=== PATIENT | female | born 1960 | race Caucasian/White ===

== ENCOUNTER → 2017-12-03 | Outpatient (CLI) | payer OTHER | LOC: BMCIMAGING 16:14 | PROVIDERS: ATTEND Family Medicine | DX: J18.9 Pneumonia, unspecified organism (principal); J90 Pleural effusion, not elsewhere classified ==

== ENCOUNTER 2017-12-04 11:18 | Inpatient (IN) | payer OTHER ==
--- NOTE | 2017-12-04 11:43 | EDPHY ---
H & P Stated Complaint: DX PNA YESTERDAY AT [facility] WITH CXR/FLU NEG NOT BETTER WITH ABX Time Seen by Provider: 12/04/17 11:26 HPI/ROS: CHIEF COMPLAINT: Fever, chills, positive blood cultures HISTORY OF PRESENT ILLNESS: The patient presents the ED with several days of fever, chills and severe back pain. The patient was seen at urgent care yesterday and diagnosed with a lingular pneumonia. She received Rocephin and was discharged home on oral antibiotics including azithromycin and a cephalosporin. The patient apparently had blood cultures obtained which have demonstrated MSSA in both bottles prompting the patient's referral to the ED today. The patient denies any history of recent dental work, procedure or prior infection. She denies significant cough. Her chief complaint is one of severe pain across her back. The patient was recently in [place] visiting her father who was hospitalized with a viral pneumonia. REVIEW OF SYSTEMS: A comprehensive 10 point review of systems is otherwise negative aside from elements mentioned in the history of present illness. Source: Patient Exam Limitations: No limitations - Personal History Current Tetanus Diphtheria and Acellular Pertussis (TDAP): Unsure - Medical/Surgical History Hx Asthma: No Hx Chronic Respiratory Disease: No Hx Diabetes: No Hx Cardiac Disease: No Hx Renal Disease: No Hx Cirrhosis: No Hx Alcoholism: No Hx HIV/AIDS: No Hx Splenectomy or Spleen Trauma: No Other PMH: DENIES - Social History Smoking Status: Never smoked - Physical Exam Exam: General Appearance: Alert, appears uncomfortable Eyes: Pupils equal and round no pallor or injection ENT, Mouth: Mucous membranes moist Respiratory: There are no retractions, lungs are clear to auscultation Cardiovascular: Tachycardic, 2/6 systolic ejection murmur Gastrointestinal: Abdomen is soft and nontender, no masses, bowel sounds normal Neurological: A&O, normal motor function, normal sensory exam, normal cranial nerves Skin: Warm and dry, no rashes Musculoskeletal: Neck is supple nontender Extremities: symmetrical, full range of motion Psychiatric: Patient is oriented X 3, there is no agitation Constitutional: Initial Vital Signs Temperature (C) 36.7 C 12/04/17 11:22 Heart Rate 102 H 12/04/17 11:22 Respiratory Rate 19 12/04/17 11:22 Blood Pressure 130/83 H 12/04/17 11:22 O2 Sat (%) 95 12/04/17 11:22 O2 Delivery Mode Room Air Allergies/Adverse Reactions: Penicillins Allergy (Verified 12/04/17 13:05) Unknown Sulfa (Sulfonamide Antibiotics) Allergy (Verified 12/04/17 13:05) Hives Home Medications: Medication Instructions Recorded Azithromycin 250 mg PO DAILY 12/04/17 Cefdinir [Omnicef (*)] 300 mg PO BID 12/04/17 Cyclobenzaprine [Flexeril 10 MG 10 mg PO Q8H PRN 12/04/17 (*)] Multivitamins [Multivitamin (*)] 1 each PO DAILY 12/04/17 Medical Decision Making - Diagnostics Imaging Results: Imaging Impressions Chest X-Ray 12/04/17 11:31 Impression: Likely scarring in the right costophrenic angle. No pneumonia identified. Chest CT 12/04/17 12:01 Impression: 1. Abnormal paraspinal soft tissue widening between T5 and T9 associated with esophageal fluid. If there is concern for an esophageal perforation, then consider performing a Gastrografin esophagram.. If there is concern for a paraspinal tumor such as a lymphoma or abscess, then recommend thoracic MRI without and with contrast. 2. The thoracic aorta is normal. Results called to Dr. Buck Garduno at 1:45 PM. General information for patients regarding this examination can be found at [email or web address]. If you have questions or comments about this report, please contact me at (hospital) or [phone] (cell). ED Course/Re-evaluation: I reviewed the patient's laboratory testing. She presents to the ED with bacteremia, back pain and dyspnea. The patient denies significant cough. Her chest x-ray yesterday demonstrates a questionable lingular infiltrate although the patient has no respiratory symptoms of productive cough. The patient had additional blood cultures obtained in the emergency department. She was given additional 2 g of Ancef in the setting of her known bacteremia. Further workup of her bacteremia was undertaken including a CT scan of the chest with contrast. I have also ordered an echocardiogram and MRI of her thoracic spine to evaluate for diskitis or osteomyelitis. CT scan of the chest demonstrates no evidence of pneumonia. She has no evidence of a pulmonary embolism or dissection. The patient does have abnormal signature noted in her para thoracic musculature. Given concerns about a possible epidural abscess a MRI of the thoracic spine with and without contrast has been ordered. Patient has no risk factors for esophageal injury and is not experiencing odynophagia. I did consult with Dr. Barragan from Infectious Disease who will also see the patient. The patient will be admitted to Dr. Barraza from the hospitalist service. The patient does not have SIRS criteria in the emergency department. 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 I consulted with Dr. Clemente from Neurosurgery at 3:00 p.m.. He will see the patient in consultation. Differential Diagnosis: Differential diagnosis considered includes sepsis, pneumonia, epidural abscess, endocarditis, mediastinitis Critical Care Time: Critical care time exclusive of procedures and exclusive of the PA's time was 65 minutes, performed by myself, Harmeet Garduno MD. The patient presents the ED with fever, bacteremia and acute back pain. The patient does have a intrathoracic abscess noted on her workup today. She received appropriate antibiotics. Consultation was made with infectious disease, Neurosurgery and Hospital Medicine. - Data Points Laboratory Results: Laboratory Results 12/04/17 12:05 12/04/17 12:05 12/04/17 12/04/17 12/04/17 12:05 12:05 12:05 WBC 9.49 10^3/uL 10^3/uL (3.80-9.50) RBC 4.86 10^6/uL 10^6/uL (4.18-5.33) Hgb 15.5 g/dL g/dL (12.6-16.3) Hct 44.4 % % (38.0-47.0) MCV 91.4 fL fL (81.5-99.8) MCH 31.9 pg pg (27.9-34.1) MCHC 34.9 g/dL g/dL (32.4-36.7) RDW 12.1 % % (11.5-15.2) Plt Count 185 10^3/uL 10^3/uL (150-400) MPV 9.8 fL fL (8.7-11.7) Neut % (Auto) 81.5 % H % (39.3-74.2) Lymph % (Auto) 8.6 % L % (15.0-45.0) [place] % (Auto) 8.9 % % (4.5-13.0) Eos % (Auto) 0.2 % L % (0.6-7.6) Baso % (Auto) 0.5 % % (0.3-1.7) Nucleat RBC Rel Count 0.0 % % (0.0-0.2) Absolute Neuts (auto) 7.73 10^3/uL H 10^3/uL (1.70-6.50) Absolute Lymphs (auto) 0.82 10^3/uL L 10^3/uL (1.00-3.00) Absolute Monos (auto) 0.84 10^3/uL H 10^3/uL (0.30-0.80) Absolute Eos (auto) 0.02 10^3/uL L 10^3/uL (0.03-0.40) Absolute Basos (auto) 0.05 10^3/uL 10^3/uL (0.02-0.10) Absolute Nucleated RBC 0.00 10^3/uL 10^3/uL (0-0.01) Immature Gran % 0.3 % % (0.0-1.1) Immature Gran # 0.03 10^3/uL 10^3/uL (0.00-0.10) VBG Lactic Acid 1.8 mmol/L mmol/L (0.7-2.1) Sodium 138 mEq/L mEq/L (135-145) Potassium 3.3 mEq/L mEq/L (3.3-5.0) Chloride 101 mEq/L mEq/L (97-110) Carbon Dioxide 26 mEq/l mEq/l (22-31) Anion Gap 11 mEq/L mEq/L (6-14) BUN 4 mg/dL L mg/dL (7-23) Creatinine 0.6 mg/dL mg/dL (0.6-1.0) Estimated GFR > 60 Glucose 104 mg/dL H mg/dL (70-100) Calcium 9.2 mg/dL mg/dL (8.5-10.4) Medications Given: Discontinued Medications Acetaminophen (Tylenol) 1,000 mg PO ONCE ONE Stop: 12/04/17 13:44 Last Admin: 12/04/17 13:44 Dose: 1,000 mg Hydromorphone HCl (Dilaudid) 1 mg IVP EDNOW ONE Stop: 12/04/17 12:30 Last Admin: 12/04/17 12:30 Dose: 1 mg Cefazolin Sodium/Dextrose (Ancef) 100 mls @ 200 mls/hr IV EDNOW ONE PRN Reason: Protocol Stop: 12/04/17 13:04 Last Admin: 12/04/17 13:37 Dose: 100 mls Departure - Departure Disposition: [facility] Acute Clinical Impression: Bacteremia, Abscess of thorax Condition: Fair
[2017-12-04 12:17] LABS: PLATELET COUNT 185 10^3/uL (150-400)
[2017-12-04] MEDS ORDERED: HYDROmorphONE/DILAUDID 1 MG/ML INJ ONE (12:26)
[2017-12-04] MEDS ORDERED: HYDROmorphONE/DILAUDID 2 MG/ML INJ IVP ONE ×2 (12:29→15:10)
[2017-12-04] MEDS ORDERED: ceFAZolin 2 GM/DEXTROSE 100 ML IV ONE (12:35)
[2017-12-04] MEDS ORDERED: IOPAMIDOL (ISOVUE-300) 100 ML BTL ONE (13:08)
[2017-12-04] MEDS ORDERED: ACETAMINOPHEN 500 MG TAB ONE (13:41)
[2017-12-04] MEDS ORDERED: ACETAMINOPHEN 500 MG TAB PO ONE (13:43)
[2017-12-04] MEDS ORDERED: GADOBUTROL 10 ML VIAL IVP ONE (14:21)
[2017-12-04] MEDS ORDERED: NS 1,000 ML IV ONE (15:39)
[2017-12-04] MEDS ORDERED: HYDROCODONE/APAP 5/325 TAB PO PRN (15:39)
[2017-12-04] MEDS ORDERED: HYDROmorphONE/DILAUDID 1 MG/ML INJ IVP PRN (15:39)
--- NOTE | 2017-12-04 16:20 | PDGENHP ---
History and Physical - Chief Complaint Fevers, back pain - History of Present Illness Lindsey Samuels is a 57 yo F with a unremarkable PMHx of who presents to [facility] for 5 days of back pain and fevers. She reports that she was seen at urgent care center yesterday and diagnosed with PNA. She was given Rocephin and discharged on oral abx. Blood cultures were reportedly collected at that time and resulted in MSSA which prompted her visit to [facility] today. She had onset of back pain on Friday. Pain was located on L side of back under her R shoulder blade, pain is described as sharp, radiating across her back, intermittent, and worse with deep breaths. She has also experienced fevers at home. She denies chest pain, cough, abdominal pain, d/c, n/v, weakness, numbness/tingling, urinary/ bowel incontinence. She does report decreased appetite and decreased PO intake over past few days 2/2 pain. She was recently in [place] visiting her who is hospitalized with a viral PNA. History Information - Allergies/Home Medication List Allergies/Adverse Reactions: Penicillins Allergy (Verified 12/04/17 13:05) Unknown Sulfa (Sulfonamide Antibiotics) Allergy (Verified 12/04/17 13:05) Hives Home Medications: Azithromycin 250 mg PO DAILY 12/04/17 [Last Taken 12/04/17] Cefdinir [Omnicef (*)] 300 mg PO BID 12/04/17 [Last Taken 12/04/17] Cyclobenzaprine [Flexeril 10 MG (*)] 10 mg PO Q8H PRN 12/04/17 [Last Taken Unknown] Multivitamins [Multivitamin (*)] 1 each PO DAILY 12/04/17 [Last Taken Unknown] I have personally reviewed and updated: family history, medical history, social history, surgical history - Past Medical History no pertinent PMH - Surgical History Reports: no pertinent surgical hx - Family History Positive for: non-pertinent - Social History Smoking Status: Never smoked Review of Systems Review of Systems: ROS: 10pt was reviewed & negative except for what was stated in HPI & below Physical Exam Physical Exam: Temp Pulse Resp BP Pulse Ox 37.8 C 113 H 16 142/92 H 93 12/04/17 15:05 12/04/17 15:05 12/04/17 15:05 12/04/17 15:05 12/04/17 15:05 Constitutional: no apparent distress Eyes: PERRL Ears, Nose, Mouth, Throat: dry mucous membranes Cardiovascular: tachycardia Respiratory: no respiratory distress, clear to auscultation Gastrointestinal: soft, non-tender abdomen Genitourinary: no bladder tenderness, No jimenez in urethra Skin: warm Musculoskeletal: no muscle tenderness, pain with ROM Neurologic: AAOx3 Psychiatric: interacting appropriately Lab Data & Imaging Review 12/04/17 12:05 12/04/17 12:05 WBC 9.49 10^3/uL (3.80-9.50) 12/04/17 12:05 RBC 4.86 10^6/uL (4.18-5.33) 12/04/17 12:05 Hgb 15.5 g/dL (12.6-16.3) 12/04/17 12:05 Hct 44.4 % (38.0-47.0) 12/04/17 12:05 MCV 91.4 fL (81.5-99.8) 12/04/17 12:05 MCH 31.9 pg (27.9-34.1) 12/04/17 12:05 MCHC 34.9 g/dL (32.4-36.7) 12/04/17 12:05 RDW 12.1 % (11.5-15.2) 12/04/17 12:05 Plt Count 185 10^3/uL (150-400) 12/04/17 12:05 MPV 9.8 fL (8.7-11.7) 12/04/17 12:05 Neut % (Auto) 81.5 % (39.3-74.2) H 12/04/17 12:05 Lymph % (Auto) 8.6 % (15.0-45.0) L 12/04/17 12:05 [place] % (Auto) 8.9 % (4.5-13.0) 12/04/17 12:05 Eos % (Auto) 0.2 % (0.6-7.6) L 12/04/17 12:05 Baso % (Auto) 0.5 % (0.3-1.7) 12/04/17 12:05 Nucleat RBC Rel Count 0.0 % (0.0-0.2) 12/04/17 12:05 Absolute Neuts (auto) 7.73 10^3/uL (1.70-6.50) H 12/04/17 12:05 Absolute Lymphs (auto) 0.82 10^3/uL (1.00-3.00) L 12/04/17 12:05 Absolute Monos (auto) 0.84 10^3/uL (0.30-0.80) H 12/04/17 12:05 Absolute Eos (auto) 0.02 10^3/uL (0.03-0.40) L 12/04/17 12:05 Absolute Basos (auto) 0.05 10^3/uL (0.02-0.10) 12/04/17 12:05 Absolute Nucleated RBC 0.00 10^3/uL (0-0.01) 12/04/17 12:05 Immature Gran % 0.3 % (0.0-1.1) 12/04/17 12:05 Immature Gran # 0.03 10^3/uL (0.00-0.10) 12/04/17 12:05 VBG Lactic Acid 1.8 mmol/L (0.7-2.1) 12/04/17 12:05 Sodium 138 mEq/L (135-145) 12/04/17 12:05 Potassium 3.3 mEq/L (3.3-5.0) 12/04/17 12:05 Chloride 101 mEq/L (97-110) 12/04/17 12:05 Carbon Dioxide 26 mEq/l (22-31) 12/04/17 12:05 Anion Gap 11 mEq/L (6-14) 12/04/17 12:05 BUN 4 mg/dL (7-23) L 12/04/17 12:05 Creatinine 0.6 mg/dL (0.6-1.0) 12/04/17 12:05 Estimated GFR > 60 12/04/17 12:05 Glucose 104 mg/dL (70-100) H 12/04/17 12:05 Calcium 9.2 mg/dL (8.5-10.4) 12/04/17 12:05 Assessment & Plan Assessment: Paraspinal Abscess vs., Phlegmon - Presents with 5 days of back pain, fevers - MRI Thoracic Spine shows multiloculated fluid collection anterior to T5-6, largest collection 2.8 cm x 0.7 cm. Fluid does not tract posteriorly into neural foramina or spinal canal. No epidural abscess - Reportedly + blood cultures at OSH grew MSSA - S/p Ancef in ED, will continue for now - ID and Neurosurgery consulted in ED for further evaluation and management - NPO for now pending neurosurgical evaluation - Pain control PRN Bacteremia (Acute) - Reportedly + blood cultures at OSH grew MSSA - Repeat blood cultures drawn in ED, f/u results - Continue Ancef as above - TTE pending to evaluate for endocarditis Tachycardia - HR 100-110's on admission, appears sinus - Does not meet SIRS criteria given lac of leukocytosis, tachypnea - Likely 2/2 to pain and infection, prn pain meds as above, will give 1L NS Bolus then mIVF overnight FEN: 1L NS Bolus, 100 ml NS overnight, NPO pending neurosurg eval DVT PPx: SCDs, holding pending neurosurg eval Code: Full Dispo: Admit to Medicine, pending clinical course
--- NOTE | 2017-12-04 16:53 | ECHO ---
[email or web address] [address] [address] Main: [phone] Fax: Transthoracic Echocardiogram Name: NATALIIA CAMACHO MR#: [id number] Study Date: 12/04/2017 Study Time: 12:12 PM Date of : 1960 Age: 57 year(s) Height: 170.2 cm (67 in.) Weight: 58.97 kg (130 lb.) BSA: 1.68 m2 Gender: Female Examination: Echo Indication: bacteremic, Chest Pain Image Quality: Adequate Contrast: Requested by: Harmeet Garduno BP: / Heart Rate: Rhythm: Indication: bacteremic, Chest Pain Procedure Staff Singing Messenger: Sarah Aguayo [facility] Reading Physician: Salud Chandler MD Requesting Provider: Conclusions: Normal size left ventricle. No LV hypertrophy. Normal global systolic LV function. EF is 62 %. Normal size right ventricle. Normal RV function. Chiari's network discernible in right atrium. Trivial anterior pericardial effusion. No echocardiographic evidence of hemodynamic compromise. no significant valvular disease. No prior echo Measurements: Chambers Valvular Assessment AV/MV Valvular Assessment TV/PV Normal Normal Normal Name Value Range Name Value Range Name Value Range Ao Trini (2D): 2.9 cm (1.4 cm-2.6 AV Vmax: 1.16 m/s (1 m/s-1.7 PV Vmax: 0.77 m/s (0.6 m/s-0.9 cm) m/s) m/s) IVSd (2D): 0.8 cm (0.6 cm-1.1 AV maxP mmHg ( - ) PV PGmax: 2 mmHg ( - ) cm) AV meanP mmHg ( - ) LVDd (2D): 4.6 cm (3.9 cm-5.3 LVOT Vmax: 0.85 m/s (0.7 m/s-1.1 cm) m/s) LVDs (2D): 3.1 cm (2.1 cm-4 RENUKA (Vmax): 2.3 cm2 ( - ) cm) RENUKA (VTI): 2.0 cm ( - ) LVPWd (2D): 0.8 cm ( - ) MV E Vmax: 0.55 m/s ( - ) LVOTd 2.0 cm 2.0 cm mm MV A Vmax: 0.57 m/s ( - ) LVEF (BP): 62 % (>=55 %) MV E/A: 0.96 ( - ) RVDd(2D): 2.9 cm (1.9 cm-3.8 MV PHT: 0.059 s ( - ) cmmm) MVA (PHT): 3.7 s ( - ) Continued Measurements: Patient: NATALIIA CAMACHO Study Date: 12/04/2017 Page 1 of 2 12:12 PM Chambers Valvular Assessment AV/MV Name Value Name Value LADs: 3.0 cm MV DecTime: 173 m/s LA Volume: 28 ml MV E/E' Septal: 7.60 LA Volume Index: 16.7 ml/m2 MV E/E' Lateral: 6.90 RA Area: 13.3 cm2 Additional Vessels Name Value Ao Ascendin.2 cm Inferior Vena Cava: 1.6 cm Findings: Left Ventricle: Normal size left ventricle. No LV hypertrophy. Normal global systolic LV function. EF is 62 %. No regional wall motion abnormality. Normal diastolic LV function. Right Ventricle: Normal size right ventricle. Normal RV function. Left Atrium: The left atrium is normal in size. Right Atrium: The right atrium is normal in size. Chiari's network discernible in right atrium. Mitral Valve: The mitral valve is normal in appearance and function. Trivial mitral valve regurgitation. No mitral stenosis is present. Aortic Valve: The aortic valve is tri-leaflet. Trivial aortic valve regurgitation. No aortic valve stenosis is present. Tricuspid Valve: The tricuspid valve is normal in appearance and function. Trivial tricuspid valve regurgitation. Pulmonic Valve: The pulmonic valve is normal in appearance and function. There is no pulmonic regurgitation seen. Aorta: The aorta is normal. Normal size aortic root measuring 2.9 cm. Normal size ascending aorta measuring 3.2 cm. IVC: The IVC is normal sized. Pericardium: Trivial anterior pericardial effusion. No echocardiographic evidence of hemodynamic compromise. No pleural effusion. (No Signature Object) Patient: NATALIIA CAMACHO Study Date: 12/04/2017 Page 2 of 2 12:12 PM [id number]
--- NOTE | 2017-12-04 17:39 | GCON ---
NEUROSURGERY CONSULTATION CHIEF COMPLAINT: Fever and back pain. HISTORY OF PRESENT ILLNESS: This is a 57-year-old female who was visiting her dad in [place] and cam e back and started having increased amount of back pain. She states she thought this was just from h er traveling a lot and did not think much of it. Yesterday, she spiked a fever of 103 and was unable to get it down with Tylenol and ibuprofen. She also started having extreme worsening back pain in t he upper thoracic area. She states that it was so uncomfortable that she went to the urgent care, wh ere they did an x-ray and thought that they may have seen something but were unsure and gave her 1 do se of antibiotics there, but did tell her that she would be better off going to the ER where they cou ld perform more tests. She then went home and spent the evening trying to get her fever down and con tinued to have worsening back pain and high fevers of 103 and presented to the ER today for further e valuation. Currently, she states that she has horrible back pain and continued fever. She denies an y numbness, tingling, or pain in her legs. She denies any weakness in her legs. She denies any america l or bladder incontinence. Neurosurgery services were consulted after an MRI was performed of the th oracic spine, and there was a prevertebral abscess seen. REVIEW OF SYSTEMS: All pertinent positive and negative review of systems are as stated in the HPI. PAST MEDICAL HISTORY: Reviewed and is only significant for a history of eczema, which she uses topic al steroids for. She denies any other history of any other autoimmune disease or any other reason fo r her immune system to be suppressed. She denies any other recent infections. She denies any recent hospitalizations. SOCIAL HISTORY: Patient denies any smoking and admits to occasional alcohol use. ALLERGIES: Patient is allergic to penicillins, her reaction is unknown, and sulfa; her reaction is h michelle. HOME MEDICATIONS: Include cyclobenzaprine, Flexeril, multivitamin. The Flexeril she just started ye sterday at the urgent care. She is also on cefdinir 300 mg p.o. b.i.d. and azithromycin 250 mg p.o. daily that was started recently after her urgent care visit. OBJECTIVE: VITAL SIGNS: Blood pressure 142/92, heart rate 113, respiratory rate 16, O2 saturation 9 3% on room air, temperature 37.8 degrees Celsius, which is down from 38.3 degrees Celsius at 1337. C ARDIAC: Rhythm is normal sinus. CONSTITUTIONAL: Patient is alert and oriented x3 and in no acute d istress. She is in obvious pain and is uncomfortable in bed. Any movement seems to make her have wo rsening pain. Her speech is fluent. She is conversing appropriately. She is moving all her extremi ties x4. NEUROLOGIC: Cranial nerves 2-12 are grossly intact. Tongue protrusion is midline. Palate rises symmetrically. Facial sensation is intact to light touch. She has no facial droop. Her extr aocular muscles are intact. Pupils are equal and react to light and accommodation. Grossly, neurolo gic motor exam bilateral upper extremities and lower extremities is 5/5 and equal in strength in all muscle groups, including deltoids, biceps, triceps, wrist extensors, flexors, interossei and manager of hospital, qu adriceps, hamstrings, dorsiflexion, plantar flexion, and EHL. Sensation is intact over the normal de rmatomal distribution of the body. Negative clonus bilaterally. Toes are downgoing. Negative Hoffm bon's bilaterally. ABDOMEN: There is no guarding. RESPIRATORY: There is normal work of breathing. EXTREMITIES: There is no cyanosis or edema noted. DIAGNOSTIC IMAGING REVIEW: A CT of the chest was performed and shows an abnormal paraspinal soft tis annika widening between T5 and T9 associated with esophageal fluid. An MRI of the thoracic spine was performed and shows: 1. A paraspinal abscess versus phlegmon at the T5-T6 level along the anterior spinal column. No epi dural abscess. No evidence of osteomyelitis or infected disk space. 2. Mild multilevel degenerative disk disease. No disk herniation or central canal narrowing at any level. Small bilateral pleural effusions and bibasilar atelectasis. ASSESSMENT/PLAN: This is a 57-year-old female who presents with high fevers and worsening back pain. Her MRI of the lumbar spine does show a prevertebral abscess, worse at T5-T6. This is likely the s ource of this pain. At this time, there are no neurosurgical indications as there is no sign of any epidural abscess or any evidence for diskitis or any other abscess that would need to be surgically e vacuated from a neurosurgical standpoint. The patient will continue her followup with the Infectious Disease doctors, and they will continue workup for possible drainage of this infection or treatment with likely IV antibiotics. Any changes in her exam or any further need for our expertise, please le t us know. Thank you again for this consultation. We will be signing off on this patient. /[id number]/MODL
[2017-12-04] MEDS: NS 1,000 ML IV SCH (18:05)
--- NOTE | 2017-12-04 18:19 | PDMN ---
Medical Necessity Medical necessity: Pt meets inpt criteria per MD order and MCG M-160, Sepsis and Other Febrile Illness, without Focal Infection. 57 y/o presents w/5 days back pain and fevers, recently diagnosed w/PNA and treated outpt and reportedly + blood cultures at that facility, admitted w/paraspinal abcess vs plegmon w/ MRI of thoracic spine showing fluid collection ant to T5-6, bacteremia, and tachycardia (HR consistently 102-113), and fever. ID and Neurosurg consulted, NPO pending further neurosurg eval, IVF, IV ABX's, IV Dilaudid for pain, blood cultures pending. Anticipate>2MN for further workup/treatment.
[2017-12-04] MEDS: IBUPROFEN 600 MG TAB PO PRN (18:45)
[2017-12-04] MEDS: ONDANSETRON DISINTEGRATING 4 MG TAB PO PRN (19:03)
--- NOTE | 2017-12-04 19:50 | GCON ---
INFECTIOUS DISEASE CONSULTATION. DATE OF CONSULTATION: 12/04/2017 REASON FOR CONSULTATION: MSSA bacteremia. HISTORY OF PRESENT ILLNESS: This is a 57-year-old healthy woman with minimal past medical history who starting on November 30 developed a fever and severe left-sided shoulder and back pain. She describes the fever as unrelenting and was taking scheduled NSAIDs and Tylenol to control the pain. She presented to [facility] yesterday and was diagnosed with a lingular pneumonia. Patient had a negative influenza at that time and was diagnosed with pneumonia, given a dose of IV ceftriaxone and discharged on an oral cephalosporin and Azithromycin. The patient states that she had the worst pain last night prior to admission, describing the pain on the left side as 10/10. Today she was called due to positive blood cultures from 12/03/2017. The patient was seen in the emergency room and was found to be tachycardic and quickly developed a fever. Her blood pressure was stable. She underwent repeat blood cultures. A CT scan of her chest which showed no parenchymal lesions but some paraspinal tissue inflammation from T5-T9. She subsequently underwent an MRI of the T-spine, where a prevertebral paraspinous abscess was identified, 2.8 x 0.7 from T5-T6. Interestingly, no obvious epidural disk or bone involvement. The patient states that her pain has been controlled since admission with IV Dilaudid. PAST MEDICAL HISTORY: Perimenopausal. PAST SURGICAL HISTORY: She has eczema on both of her hands, which was recently exacerbated. She is perimenopausal, underwent a uterine biopsy about 3 weeks ago that was negative. She also was ruled out for infection. She had right knee lateral release and right toe surgery. ALLERGIES: Sulfa causes a rash in 1993. She has been told in childhood that she has a reaction to penicillin, but does not necessarily consider this a true reaction. SOCIAL HISTORY: Patient is . Nonsmoker. Alcohol occasionally. Lives in [facility] [place]. No pets. No international travel. No animals in her lawn recently. She did travel to [place] recently taking care of her father, who was admitted for viral pneumonia. She works for [employer], but also is very active and doing a lot of heavy lifting associated with remodeling her home, but denies a specific injury. FAMILY HISTORY: Reviewed and noncontributory. REVIEW OF SYSTEMS: A complete 10-point review of systems was performed and is negative except as mentioned in the HPI. Patient has had headaches with high fevers, but other than her left-sided back and chest pain that is pleuritic in nature and some complaints of fever, she has no other complaints. No noted rashes. PHYSICAL EXAMINATION: VITAL SIGNS: T-max 38.3, T current 38, HR 109, RR 16, saturations are normal on room air. BP 132/91. GENERAL: This is a mildly distressed woman lying in bed due to pain. HEENT: Pupils reactive bilaterally. No conjunctival hemorrhages. Oropharynx: Good dentition, dry mucous membranes. No oral ulcerations or exudate. NECK: Supple. CARDIOVASCULAR: Tachycardic, possible systolic murmur. CHEST: Inspiratory effort but no crackles were appreciated. ABDOMEN: Soft, nontender. EXTREMITIES: No clubbing, cyanosis, or edema. She had no peripheral stigmata of endocarditis. On her palmar surface of her hands bilaterally underlying eczema with significant cracking was identified without surrounding inflammation. NEUROLOGIC: She was moving all 4 extremities equally. She is alert oriented x4. LABORATORY: White count 9.4, hematocrit 44, platelets of 185, 81% neutrophils. Lactic acid 1.8. Creatinine is 0.6. IMAGING: TTE showed normal ejection fraction and no valvular disease. ASSESSMENT/PLAN: 57-year-old healthy woman who presented with fever and left- sided back and chest pain that is pleuritic in nature. Subsequently found to have MSSA bacteremia with a paraspinous abscess from T5-T6, 2.8 x 0.7 cm that is multi loculated. Interestingly, no epidural disk or bone involvement obvious at this time. Source of bacteremia likely eczema with cracks on her bilateral hands. 1. Agree with high-dose cefazolin 2 g IV q. 8. If patient is established to have endocarditis, could reconsider this and this was specifically discussed as patient does not really have a significant penicillin allergy. Could try change to nafcillin if thought indicated. 2. Transesophageal echocardiogram to rule out endocarditis. Transthoracic echo already performed without definitive results. 3. Repeat blood cultures at 48 hours to establish blood culture clearance. Blood cultures were repeated today in the emergency room, but doubt that these will be clear as patient has only gotten 1 dose of cefazolin. 4. Discussed length of therapy from 6-8 weeks of IV antibiotics following blood culture clearance. Discussed that 1st expected time of clearance would be in 48 hours. 5. Discussed potential indications for evaluating drainage of this small paraspinous abscess. Discussed the challenging location of this abscess and that would be difficult to drain. Certainly reasonable to pursue antibiotic therapy 1st and then readdress if inability to clear blood cultures or other data arising warranting drainage. Determine which surgical services would be most appropriate query CT surgery verses General surgery. Since this is not involving the spine/epidural space directly Neurosurgery deferred drainage. 6. Discussed PICC line placement and outpatient antibiotic therapy and what that looked like. Time was 110 minutes. Greater than 50% of time spent in education and counseling regarding IV antibiotic therapy, length of therapy, complications of IV antibiotic therapy and whether indications for re addressing need for drainage of this small abscess that is in a challenging location. Thank you for this consultation. We will continue to see the patient on a daily basis. /[id number]/MODL MTDD
[2017-12-04] MEDS: ceFAZolin 2 GM/DEXTROSE 100 ML IV SCH (21:20)
[2017-12-04] MEDS ORDERED: LACTULOSE 20 GM/30 ML UDCUP PO PRN (22:37)
[2017-12-04] MEDS ORDERED: BISACODYL 10 MG SUPP PR PRN (22:37)
[2017-12-04] MEDS ORDERED: MAGNESIUM HYDROXIDE 30 ML UDCUP PO PRN (22:37)
[2017-12-04] MEDS: ACETAMINOPHEN 325 MG TAB PO PRN ×2 (23:04→23:17)
[2017-12-04] MEDS: HYDROmorphONE/DILAUDID 1 MG/ML INJ IVP PRN (23:04)
[2017-12-04] MEDS: SENNOSIDES/DOCUSATE SODIUM TAB PO SCH ×2 (23:06→23:17)
[2017-12-04] MEDS: ONDANSETRON 4 MG/2 ML VIAL IVP PRN (23:12)
[2017-12-05] MEDS: ONDANSETRON 4 MG/2 ML VIAL IVP PRN ×5 (03:26→22:50)
[2017-12-05] MEDS: HYDROmorphONE/DILAUDID 1 MG/ML INJ IVP PRN ×5 (03:27→20:27)
[2017-12-05] MEDS: IBUPROFEN 600 MG TAB PO PRN ×2 (03:27→12:49)
[2017-12-05] MEDS: NS 1,000 ML IV SCH (03:38)
[2017-12-05 05:32] LABS: PLATELET COUNT 163 10^3/uL (150-400)
[2017-12-05] MEDS: ceFAZolin 2 GM/DEXTROSE 100 ML IV SCH ×3 (06:10→22:59)
[2017-12-05] MEDS: ACETAMINOPHEN 325 MG TAB PO PRN ×2 (07:35→16:25)
[2017-12-05] MEDS: SENNOSIDES/DOCUSATE SODIUM TAB PO SCH ×2 (07:35→20:27)
--- NOTE | 2017-12-05 11:32 | ASMTCMCOM ---
CM Note CM Note Notes: Pt is a 57 y/o female admitted for fevers and back pain. Pt presented to [facility] 5 days ago for the same presentation. Pt went to urgent care yesterday and left w/ oral rocephin. Blood cultures report that pt is positive for MSSA. ID is being consulted. Needs are TBD at this time. CM to follow. Plan: TBD Date Signed: 12/05/2017 11:32 AM Electronically Signed By:AMILCAR Park
[2017-12-05] MEDS ORDERED: NS 500 ML IV ONE (13:04)
--- NOTE | 2017-12-05 13:23 | PDHPUP ---
History & Physical Update H&P update statement: This history and physical update is based on an assessment of the patient which was completed after admission or registration (within 24 hours), but prior to the surgery/procedure. H&P update: H&P reviewed & patient examined, no change in patient's condition since H&P completed (Reviewed Dr. Barragan' consult noted dated 12/04/2017)
--- NOTE | 2017-12-05 13:26 | PDANEPAE ---
ANE History of Present Illness MONIKA ANE Past Medical History - Cardiovascular History Hx Hypertension: No Hx Arrhythmias: No Hx Chest Pain: No Hx Coronary Artery / Peripheral Vascular Disease: No Hx CHF / Valvular Disease: No - Pulmonary History Hx Oxygen in Use at Home: No Hx Sleep Apnea: No - Endocrine History Hx Diabetes: No - Chronic Pain History Chronic Pain: Yes ANE Review of Systems Review of Systems: - Exercise capacity Exercise capacity: >=4 METS ANE Patient History - Allergies Allergies/Adverse Reactions: Penicillins Allergy (Verified 12/04/17 13:05) Unknown Sulfa (Sulfonamide Antibiotics) Allergy (Verified 12/04/17 13:05) Hives - Home Medications Home Medications: Azithromycin 250 mg PO DAILY 12/04/17 [Last Taken 12/04/17] Cefdinir [Omnicef (*)] 300 mg PO BID 12/04/17 [Last Taken 12/04/17] Cyclobenzaprine [Flexeril 10 MG (*)] 10 mg PO Q8H PRN 12/04/17 [Last Taken Unknown] Multivitamins [Multivitamin (*)] 1 each PO DAILY 12/04/17 [Last Taken Unknown] - NPO status NPO Status: no food or drink >8 hours - Anes Hx Anes Hx: post operative nausea and vomiting - Smoking Hx Smoking Status: Never smoked - Alcohol Use Alcohol Use: Rarely - Family Anes Hx Family Anes Hx: none ANE Labs/Vital Signs - Labs Result Diagrams: 12/05/17 04:43 12/04/17 12:05 - Vital Signs Blood Pressure: 121/71 Heart Rate: 91 Respiratory Rate: 16 O2 Sat (%): 90 Height: 170.18 cm Weight: 58.967 kg ANE Physical Exam - Airway Neck exam: FROM Mallampati Score: Class 2 Mouth exam: normal dental/mouth exam - Pulmonary Pulmonary: no respiratory distress, clear to auscultation - Cardiovascular Cardiovascular: regular rate and rhythym, no murmur, rub, or gallop - ASA Status ASA Status: II ANE Anesthesia Plan Anesthesia Plan: GA with mask
[2017-12-05] MEDS ORDERED: PROPOFOL/EMULSION 500 MG/50 ML BOTTLE IV ONE (13:29)
--- NOTE | 2017-12-05 13:57 | POSTANESTH ---
Post Anesthetic Evaluation Cardiovascular Status: Normal, Stable, Similar to Pre-Op Cond Respiratory Status: Normal, Stable, Similar to Pre-op Cond. Level of Consciousness/Mental Status: Can Participate in Eval, Alert and Oriented Pain Control: Adequate, Prn Tx Ordered Nausea/Vomiting Control: Adequate, Prn Tx Ordered Complications Possibly Related to Anesthesia: None Noted
--- NOTE | 2017-12-05 15:36 | HOSPPROG ---
Hospitalist Progress Note Assessment/Plan: Paraspinal Abscess vs., Phlegmon - Presents with 5 days of back pain, fevers - MRI Thoracic Spine shows multiloculated fluid collection anterior to T5-6, largest collection 2.8 cm x 0.7 cm. Fluid does not tract posteriorly into neural foramina or spinal canal. No epidural abscess - Reportedly + blood cultures at OSH grew MSSA - cont IV Ancef Bacteremia (Acute) - Reportedly + blood cultures at OSH grew MSSA - Repeat blood cultures drawn in ED, f/u results - Continue Ancef as above - MONIKA negative for endocarditiis DVT PPx: SCDs, Code: Full Subjective: pain severe every 4 hours. gts nauseous with oral dilaudid Objective: Vital Signs Temp Pulse Resp BP Pulse Ox 36.3 C 91 16 121/71 H 90 L 12/05/17 11:35 12/05/17 13:26 12/05/17 13:26 12/05/17 13:26 12/05/17 13:26 Laboratory Results 12/05/17 04:43 12/04/17 12/05/17 12/06/17 05:59 05:59 05:59 Intake Total 2200 Output Total 200 Balance 2000 - Physical Exam Constitutional: no apparent distress, appears nourished, not in pain Eyes: anicteric sclera, EOMI Ears, Nose, Mouth, Throat: moist mucous membranes Cardiovascular: regular rate and rhythym Respiratory: no respiratory distress Gastrointestinal: normoactive bowel sounds, soft, non-tender abdomen, no palpable masses Skin: warm Neurologic: AAOx3 Psychiatric: interacting appropriately, not anxious, not encephalopathic, thought process linear ICD10 Worksheet Patient Problems: Problems Problem Status Onset Abscess of thorax Acute Bacteremia Acute
--- NOTE | 2017-12-05 16:17 | ECHO ---
[email or web address] [address] [address] Main: [phone] Fax: Transesophageal Echocardiography Name: NATALIIA CAMACHO MR#: [id number] Study Date: 12/05/2017 Study Time: 01:13 PM Date of : 1960 Age: 57 year(s) Height: ( ) Weight: ( ) BSA: Gender: Female Examination: MONIKA Indication: bacteremia; r/o vegetations Image Quality: Contrast: I.V. dose of agitated saline Requested by: Alta Barraza Heart Rate: Rhythm: BP: / Procedure Staff Melon Packer: Meryl Hess [facility] Reading Physician: Salud Chandler MD Requesting Provider: Yomaira Barragan MONIKA Exam Details Contrast: I.V. dose of agitated saline Conclusions: Normal size left ventricle. Normal global systolic LV function. Normal size right ventricle. Normal RV function. The interatrial septum is thin and aneurysmal. Negative bubble study however patient was unable to perform a valsalva manuever. No thrombus in left appendage. There is mild thickening of the mitral valve leaflets. Trivial to mild mitral regurgitation. There is no mitral valve vegetation. Trivial to mild tricuspid valve regurgitation. No tricuspid valve vegetation. Promient Chiari network noted. Measurements: Chambers Valvular Assessment AV/MV Valvular Assessment TV/PV Normal Normal Normal Name Value Range Name Value Range Name Value Range Additional Measurements: Patient: NATALIIA CAMACHO Study Date: 12/05/2017 Page 1 of 2 01:13 PM Findings: Left Ventricle: Normal size left ventricle. Normal global systolic LV function. Right Ventricle: Normal size right ventricle. Normal RV function. Left Atrium: The left atrium is normal in size. The interatrial septum is thin and aneurysmal. Negative bubble study however patient was unable to perform a valsalva manuever. Left Atrial Appendage: No thrombus in left appendage. Right Atrium: The right atrium is normal in size. Mitral Valve: There is mild thickening of the mitral valve leaflets. Trivial to mild mitral regurgitation. There is no mitral valve vegetation. Aortic Valve: The aortic valve is tri-leaflet. There is no aortic valve regurgitation. No aortic valve stenosis is present. There is no aortic valve vegetation. Tricuspid Valve: The tricuspid valve is normal in appearance and function. Trivial to mild tricuspid valve regurgitation. No tricuspid valve vegetation. Promient Chiari network noted. Pulmonic Valve: The pulmonic valve is normal in appearance. There is no pulmonic regurgitation seen. There is no pulmonary valve vegetation. l1n (No Signature Object) Patient: NATALIIA CAMACHO Study Date: 12/05/2017 Page 2 of 2 01:13 PM [id number]
[2017-12-05] MEDS: IBUPROFEN 600 MG TAB PO SCH ×2 (16:25→22:53)
[2017-12-05] MEDS: ONDANSETRON DISINTEGRATING 4 MG TAB PO PRN (20:27)
--- NOTE | 2017-12-05 21:10 | PCMIDPN ---
Assessment/Plan: Assessment: MSSA bacteremia from a cervical prevertebral abscess. Abscess is complex and difficult to access. Will try to clear bloodstream and avoid surgery if possible. Her fevers are abated today and she feels better from that respect although the sharp bouts of pain continue. Will continue IV cefazolin and reassess with follow up blood cultures tomorrow AM. Plan: 1) Continue IV ancef. 2) Follow up blood cultures in the AM. Subjective: Patient is resting in her hospital bed. Overall she says that she is doing a little better. Her MONIKA was negative and she is hopeful to discharge from the hospital in the next couple of days. Objective: cefazolin #1 Vital Signs Temp Pulse Resp BP Pulse Ox 36.5 C 103 H 16 120/85 H 91 L 12/05/17 19:32 12/05/17 19:32 12/05/17 19:32 12/05/17 19:32 12/05/17 19:32 Laboratory Results 12/05/17 04:43 12/04/17 12/05/17 12/06/17 05:59 05:59 05:59 Intake Total 2200 1400 Output Total 200 Balance 2000 1400 C-Reactive Protein 403.7 mg/L (<10.0) H 12/04/17 12:05 - Physical Exam General Appearance: WD/WN, alert, no apparent distress, non-toxic Respiratory: lungs clear, normal breath sounds, No respiratory distress Neck: supple, normal inspection Cardiac/Chest: regular rate, rhythm, No tachycardia, No systolic murmur Skin: normal color, warm/dry, rash Neuro/Psych: alert, normal mood/affect, oriented x 3 ICD10 Worksheet Patient Problems: Problems Problem Status Onset Abscess of thorax Acute Bacteremia Acute
[2017-12-06] MEDS: HYDROmorphONE/DILAUDID 1 MG/ML INJ IVP PRN ×3 (00:33→21:01)
[2017-12-06 05:21] LABS: PLATELET COUNT 148 10^3/uL (150-400)
[2017-12-06] MEDS: ceFAZolin 2 GM/DEXTROSE 100 ML IV SCH ×3 (05:29→22:59)
[2017-12-06] MEDS: IBUPROFEN 600 MG TAB PO SCH ×4 (08:07→23:53)
[2017-12-06] MEDS: SENNOSIDES/DOCUSATE SODIUM TAB PO SCH ×2 (08:07→21:02)
[2017-12-06] MEDS: ONDANSETRON 4 MG/2 ML VIAL IVP PRN ×3 (08:11→21:01)
[2017-12-06] MEDS ORDERED: KETOROLAC 15 MG/1 ML SDV IVP ONE (09:15)
[2017-12-06] MEDS: LIDOCAINE 4%/MENTHOL 1% PATCH TD SCH ×2 (09:20→09:27)
[2017-12-06] MEDS: ACETAMINOPHEN 325 MG TAB PO PRN (11:39)
[2017-12-06] MEDS: KETOROLAC 15 MG/1 ML SDV IVP SCH ×3 (15:35→23:02)
--- NOTE | 2017-12-06 15:41 | HOSPPROG ---
Hospitalist Progress Note Assessment/Plan: Paraspinal Abscess vs., Phlegmon - Presents with 5 days of back pain, fevers - MRI Thoracic Spine shows multiloculated fluid collection anterior to T5-6, largest collection 2.8 cm x 0.7 cm. Fluid does not tract posteriorly into neural foramina or spinal canal. No epidural abscess - Reportedly + blood cultures at OSH grew MSSA - cont IV Ancef, ID following Back Pain - 2/2 to abscess as above - Continue scheduled Ibuprofen, will add scheduled Tylenol today, IV Dilaudid and Ketorolac for severe pain Bacteremia (Acute) - Reportedly + blood cultures at OSH grew MSSA - Repeat blood cultures drawn in ED, growing MSSA - Continue Ancef as above - MONIKA negative for endocarditis - Repeat blood cultures drawn this Am DVT PPx: SCDs Code: Full Subjective: Patient reports moderate pain in back this afternoon, also complaining of nausea and headache Objective: Vital Signs Temp Pulse Resp BP Pulse Ox 36.9 C 80 12 116/79 95 12/06/17 11:24 12/06/17 11:24 12/06/17 11:24 12/06/17 11:24 12/06/17 11:24 Laboratory Results 12/06/17 04:55 12/06/17 04:55 12/05/17 12/06/17 12/07/17 05:59 05:59 05:59 Intake Total 2200 1950 500 Output Total 200 Balance 2000 1950 500 - Physical Exam Constitutional: uncomfortable Eyes: PERRL Ears, Nose, Mouth, Throat: moist mucous membranes Cardiovascular: regular rate and rhythym, No edema Respiratory: no respiratory distress Gastrointestinal: No distension Genitourinary: No jimenez in urethra Skin: normal color Musculoskeletal: pain with ROM Neurologic: AAOx3 Psychiatric: interacting appropriately ICD10 Worksheet Patient Problems: Problems Problem Status Onset Abscess of thorax Acute Bacteremia Acute
--- NOTE | 2017-12-06 15:45 | PCMIDPN ---
Assessment/Plan: Assessment: MSSA bacteremia from a cervical prevertebral abscess. Abscess is complex and difficult to access. Medical therapy in attempt to clear bloodstream and avoid surgery if possible. Her fevers have remained absent. Will continue IV cefazolin and monitor follow up blood cultures drawn this morning. Plan: 1) Continue IV ancef. 2) Follow up blood cultures. 3) follow clinical symptoms. 12/06/17 15:41 Subjective: Patient had a difficult night last night secondary to pain and discomfort. Her pain medicines have been changed to Toradol from narcotics. Patient also has constipation and bloating. No fevers. Objective: Cefazolin # 2 Vital Signs Temp Pulse Resp BP Pulse Ox 36.9 C 80 12 116/79 95 12/06/17 11:24 12/06/17 11:24 12/06/17 11:24 12/06/17 11:24 12/06/17 11:24 Laboratory Results 12/06/17 04:55 12/06/17 04:55 12/05/17 12/06/17 12/07/17 05:59 05:59 05:59 Intake Total 2200 1950 500 Output Total 200 Balance 2000 1950 500 C-Reactive Protein 403.7 mg/L (<10.0) H 12/04/17 12:05 - Physical Exam General Appearance: WD/WN, alert, no apparent distress, non-toxic Respiratory: lungs clear, normal breath sounds, No respiratory distress Cardiac/Chest: regular rate, rhythm, No tachycardia Skin: normal color, warm/dry, No rash Neuro/Psych: alert, normal mood/affect, oriented x 3 ICD10 Worksheet Patient Problems: Problems Problem Status Onset Abscess of thorax Acute Bacteremia Acute
[2017-12-06] MEDS: NS 1,000 ML IV SCH (17:11)
[2017-12-06] MEDS: ACETAMINOPHEN 325 MG TAB PO SCH ×3 (17:14→23:52)
[2017-12-06] MEDS ORDERED: ACETAMINOPHEN 325 MG TAB PO SCH (18:00)
[2017-12-06] MEDS: PATCH REMOVAL 1 EA PATCH TD SCH (21:02)
[2017-12-06] MEDS ORDERED: PROMETHAZINE HCL 25 MG/ML INJ IVP PRN (23:16)
[2017-12-07] MEDS: HYDROmorphONE/DILAUDID 1 MG/ML INJ IVP PRN ×4 (01:59→23:35)
[2017-12-07] MEDS: NS 1,000 ML IV SCH ×2 (01:59→12:31)
[2017-12-07] MEDS: KETOROLAC 15 MG/1 ML SDV IVP SCH ×4 (05:02→23:00)
[2017-12-07] MEDS: ACETAMINOPHEN 325 MG TAB PO SCH ×4 (05:04→23:01)
[2017-12-07] MEDS: ceFAZolin 2 GM/DEXTROSE 100 ML IV SCH ×3 (05:05→22:18)
[2017-12-07] MEDS: LIDOCAINE 4%/MENTHOL 1% PATCH TD SCH (08:22)
[2017-12-07] MEDS: IBUPROFEN 600 MG TAB PO SCH (08:23)
[2017-12-07] MEDS: SENNOSIDES/DOCUSATE SODIUM TAB PO SCH ×2 (08:23→21:49)
[2017-12-07] MEDS: ONDANSETRON 4 MG/2 ML VIAL IVP SCH ×4 (09:55→22:18)
--- NOTE | 2017-12-07 10:59 | HOSPPROG ---
Hospitalist Progress Note Assessment/Plan: Paraspinal Abscess vs., Phlegmon - Presents with 5 days of back pain, fevers - MRI Thoracic Spine shows multiloculated fluid collection anterior to T5-6, largest collection 2.8 cm x 0.7 cm. Fluid does not tract posteriorly into neural foramina or spinal canal. No epidural abscess. Neurosurgery consulted who recommend no intervention on admission. - Reportedly + blood cultures at OSH grew MSSA - cont IV Ancef, ID following Bacteremia (Acute) - Reportedly + blood cultures at OSH grew MSSA - Repeat blood cultures drawn in ED, growing MSSA - Continue Ancef as above - MONIKA negative for endocarditis - Repeat blood cultures drawn on 12/06, f/u results Back Pain - 2/2 to abscess as above - Continue scheduled Tylenol today, PO [place] PRN, PRN IV Dilaudid and Ketorolac for severe pain - Will order Gabapentin 300 mg qd for ongoing pain, titrate as needed DVT PPx: SCDs Code: Full Subjective: Patient reports severe pain overnight, without pain medications for 9 hours Objective: Vital Signs Temp Pulse Resp BP Pulse Ox 37.1 C 79 12 133/89 H 93 12/07/17 07:19 12/07/17 07:19 12/07/17 07:19 12/07/17 07:19 12/07/17 07:19 Laboratory Results 12/06/17 04:55 12/06/17 04:55 12/06/17 12/07/17 12/08/17 05:59 05:59 05:59 Intake Total 1950 1150 Balance 1950 1150 - Physical Exam Constitutional: uncomfortable Eyes: PERRL Ears, Nose, Mouth, Throat: moist mucous membranes Cardiovascular: No edema Genitourinary: No jimenez in urethra Skin: normal color Musculoskeletal: pain with ROM Neurologic: AAOx3 Psychiatric: interacting appropriately ICD10 Worksheet Patient Problems: Problems Problem Status Onset Abscess of thorax Acute Bacteremia Acute
[2017-12-07] MEDS: GABAPENTIN 300 MG CAP PO SCH (13:10)
--- NOTE | 2017-12-07 14:32 | PCMIDPN ---
Assessment/Plan: Assessment: MSSA bacteremia from a cervical prevertebral abscess. Abscess is complex and difficult to access. Medical therapy in attempt to clear bloodstream and avoid surgery if possible. Her fevers have remained absent but 1 of her 2 sets of blood cultures has grown gram-positive cocci in clusters. Will recheck bloods tomorrow morning. Will continue IV cefazolin and monitor all follow up blood cultures. Plan: 1) Continue IV ancef. 2) Follow up blood cultures. 3) follow clinical symptoms. 12/06/17 15:41 12/07/17 14:29 Subjective: Patient is feeling very miserable. She is lying in bed. Her main complaint is intractable nausea. She is now on Zofran 4 mg IV q.4 hours scheduled. Her pain in her neck and rib area seems to be somewhat improved but it is difficult for the patient to assess secondary to her nausea issues. No fevers or chills. Objective: Cefazolin # 3 Vital Signs Temp Pulse Resp BP Pulse Ox 36.8 C 90 12 125/82 H 87 L 12/07/17 12:00 12/07/17 12:00 12/07/17 12:00 12/07/17 12:00 12/07/17 12:00 Laboratory Results 12/06/17 04:55 12/06/17 04:55 12/06/17 12/07/17 12/08/17 05:59 05:59 05:59 Intake Total 1950 1150 Balance 1950 1150 C-Reactive Protein 403.7 mg/L (<10.0) H 12/04/17 12:05 - Physical Exam General Appearance: WD/WN, alert, no apparent distress, toxic (Mildly) Respiratory: lungs clear, normal breath sounds, No respiratory distress Cardiac/Chest: regular rate, rhythm, No tachycardia Skin: normal color, warm/dry, No rash Neuro/Psych: alert, normal mood/affect, oriented x 3 ICD10 Worksheet Patient Problems: Problems Problem Status Onset Abscess of thorax Acute Bacteremia Acute
[2017-12-07] MEDS ORDERED: SCOPOLAMINE HYDROBROMIDE 1 MG/3 DAYS PATCH TD ONE (14:47)
[2017-12-07] MEDS: PATCH REMOVAL 1 EA PATCH TD SCH (21:49)
[2017-12-08] MEDS: ONDANSETRON 4 MG/2 ML VIAL IVP SCH ×6 (02:05→21:32)
[2017-12-08] MEDS: ceFAZolin 2 GM/DEXTROSE 100 ML IV SCH ×3 (05:13→21:32)
[2017-12-08] MEDS: ACETAMINOPHEN 325 MG TAB PO SCH ×4 (05:15→23:41)
[2017-12-08] MEDS: KETOROLAC 15 MG/1 ML SDV IVP SCH ×4 (05:16→23:42)
[2017-12-08 05:24] LABS: PLATELET COUNT 225 10^3/uL (150-400)
[2017-12-08] MEDS: GABAPENTIN 300 MG CAP PO SCH (07:38)
[2017-12-08] MEDS: SENNOSIDES/DOCUSATE SODIUM TAB PO SCH ×2 (07:39→21:34)
[2017-12-08] MEDS: HYDROmorphONE/DILAUDID 1 MG/ML INJ IVP PRN (08:30)
[2017-12-08] MEDS ORDERED: POTASSIUM CL 20 MEQ TAB PO ONE ×2 (08:54→11:30)
--- NOTE | 2017-12-08 08:54 | HOSPPROG ---
Hospitalist Progress Note Assessment/Plan: #MSSA bacteremia from a cervical prevertebral abscess: attempting medical therapy to avoid surgery. No vegetation on MONIKA -IV Ancef #Hypokalemia: replace #Acute pain: not controlled. Add PO Dilaudid for longer-control. Encouraged Gabapentin, will uptitrate. Lidocaine patch, Toradol. Bowel regimen -[facility] consulted with improved symptoms #Diet: regular Inpatient care for pain control, IV abx Subjective: pain 7/10, band-like on flanks, burning sensation Objective: Vital Signs Temp Pulse Resp BP Pulse Ox 37.2 C 77 16 145/87 H 93 12/08/17 07:55 12/08/17 07:55 12/08/17 07:55 12/08/17 07:55 12/08/17 07:55 Laboratory Results 12/08/17 04:49 12/08/17 04:49 12/07/17 12/08/17 12/09/17 05:59 05:59 05:59 Intake Total 1150 900 Output Total 2150 Balance 1150 -1250 - Time Spent With Patient Time Spent with Patient: greater than 35 minutes Time Spent with Patient: Greater than 35 minutes spent on this patients care, greater than 50% of time spent counseling, educating, and coordinating care regarding the above mentioned plan. - Physical Exam Constitutional: no apparent distress Eyes: PERRL Ears, Nose, Mouth, Throat: moist mucous membranes Cardiovascular: regular rate and rhythym Respiratory: no respiratory distress Gastrointestinal: normoactive bowel sounds Genitourinary: no bladder fullness Skin: warm Musculoskeletal: full muscle strength, other (TTP over flanks, no bony pain over spine) Neurologic: AAOx3, CN II-XII Intact ICD10 Worksheet Patient Problems: Problems Problem Status Onset Abscess of thorax Acute Bacteremia Acute
[2017-12-08] MEDS ORDERED: LIDOCAINE 4%/MENTHOL 1% PATCH TD ONE (09:00)
[2017-12-08] MEDS: LIDOCAINE 4%/MENTHOL 1% PATCH TD SCH ×2 (09:06→11:48)
[2017-12-08] MEDS: HYDROmorphONE/DILAUDID 2 MG TAB PO PRN ×4 (10:11→22:22)
--- NOTE | 2017-12-08 15:06 | PCMIDPN ---
Assessment/Plan: Assessment: MSSA bacteremia from a cervical prevertebral abscess. Abscess is complex and difficult to access. Medical therapy in attempt to clear bloodstream and avoid surgery if possible. Her fevers have remained absent but both sets of blood cultures from 12/06 have grown MSSA. Blood cultures redrawn this morning. Will continue IV cefazolin and monitor all follow up blood cultures. Plan: 1) Continue IV ancef. 2) Follow up blood cultures. 3) follow clinical symptoms. Subjective: Patient is sitting up in a chair eating some food. Her nausea is much improved. She still has neck discomfort. She has been counseled on alternative methods of pain control which seem to augment the medication at this point. She plans to try gabapentin as an adjunct for her pain control tonight. Objective: Cefazolin # 4 Vital Signs Temp Pulse Resp BP Pulse Ox 37.0 C 83 18 131/87 H 96 12/08/17 12:00 12/08/17 12:00 12/08/17 12:00 12/08/17 12:00 12/08/17 12:00 Laboratory Results 12/08/17 04:49 12/08/17 04:49 12/07/17 12/08/17 12/09/17 05:59 05:59 05:59 Intake Total 1150 900 Output Total 2150 Balance 1150 -1250 C-Reactive Protein 403.7 mg/L (<10.0) H 12/04/17 12:05 - Physical Exam General Appearance: WD/WN, alert, no apparent distress, non-toxic Cardiac/Chest: regular rate, rhythm, No tachycardia Extremities: non-tender, normal inspection Skin: normal color, warm/dry, No rash Neuro/Psych: alert, normal mood/affect, oriented x 3 ICD10 Worksheet Patient Problems: Problems Problem Status Onset Abscess of thorax Acute Bacteremia Acute
[2017-12-08] MEDS ORDERED: GABAPENTIN 300 MG CAP PO SCH (21:00)
[2017-12-08] MEDS: POLYETHYLENE GLYCOL 3350 17 GM PKT PO PRN (21:31)
[2017-12-08] MEDS: PATCH REMOVAL 1 EA PATCH TD SCH ×2 (21:33)
[2017-12-09] MEDS: ONDANSETRON 4 MG/2 ML VIAL IVP SCH ×6 (02:22→22:47)
[2017-12-09] MEDS: HYDROmorphONE/DILAUDID 1 MG/ML INJ IVP PRN (02:22)
[2017-12-09] MEDS: KETOROLAC 15 MG/1 ML SDV IVP SCH ×4 (05:13→23:18)
[2017-12-09] MEDS: ceFAZolin 2 GM/DEXTROSE 100 ML IV SCH ×3 (05:13→22:41)
[2017-12-09] MEDS: ACETAMINOPHEN 325 MG TAB PO SCH ×5 (05:14→23:18)
[2017-12-09] MEDS: HYDROmorphONE/DILAUDID 2 MG TAB PO PRN (07:33)
[2017-12-09] MEDS: LIDOCAINE 4%/MENTHOL 1% PATCH TD SCH ×2 (07:36→10:01)
[2017-12-09] MEDS ORDERED: METHOCARBAMOL 750 MG TAB PO PRN (08:48)
--- NOTE | 2017-12-09 09:17 | PCMIDPN ---
Assessment/Plan: #MSSA Paraspinal abscess T spine & Bacteremia. MONIKA negative, AF since admit. Oddly no bone or disc involvement at this point --awaiting clearance of blood cultures --if blood cx remain negative may have to consider re-imaging T spine while hospitalized. If cx negative will repeat T spine at 2-3 weeks as outpatient --discussed PICC line placement risks and benefits, lifting limitation. Discussed duration of antibiotics if cx neg tomorrow, Stop Date: 01/19/18 #PCN allergy : unclear if true allergy, childhood. Patient doubts it is real. Tolerating cefazolin well # Mild crackles in lung: suspect atelectasis, encouraged IS # Slight LFT elevations at admit: improving, likely related to infection Microbiology 12/04/17 12:30 Blood Cx 2/2 MSSA 12/06/17 04:55 Blood Cx 2/2 MSSA 12/08/17 blood cx (2) pending meds cefazolin 2gm IV q8h #5 Subjective: chest pain much better controlled no diarrhea anxious to go home Objective: Vital Signs Temp Pulse Resp BP Pulse Ox 36.7 C 86 14 143/89 H 95 12/09/17 07:27 12/09/17 07:27 12/09/17 07:27 12/09/17 07:27 12/09/17 07:27 Laboratory Results 12/08/17 04:49 12/09/17 04:49 12/08/17 12/09/17 12/10/17 05:59 05:59 05:59 Intake Total 900 500 Output Total 2150 1200 Balance -1250 -700 C-Reactive Protein 403.7 mg/L (<10.0) H 12/04/17 12:05 - Physical Exam General Appearance: alert, no apparent distress Respiratory: accessory muscle use, crackles (R>L) Cardiac/Chest: regular rate, rhythm, No systolic murmur Extremities: No pedal edema Skin: warm/dry, No diaphoresis, No rash, No embolic lesions Neuro/Psych: alert, normal mood/affect, oriented x 3 - Time Spent With Patient Time Spent with Patient: greater than 35 minutes Time Spent with Patient: Greater than 35 minutes spent on this patients care, greater than 50% of time spent counseling, educating, and coordinating care regarding the above mentioned plan. ICD10 Worksheet Patient Problems: Problems Problem Status Onset Abscess of thorax Acute Bacteremia Acute
[2017-12-09] MEDS: GABAPENTIN 300 MG CAP PO SCH ×2 (10:00→20:59)
[2017-12-09] MEDS: SENNOSIDES/DOCUSATE SODIUM TAB PO SCH ×2 (10:00→22:20)
[2017-12-09] MEDS: ONDANSETRON DISINTEGRATING 4 MG TAB PO PRN (10:05)
--- NOTE | 2017-12-09 12:02 | ASMTCMCOM ---
CM Note CM Note Notes: CM spoke to Dr. Barragan and Dr. Key regarding d/c POC. Pt will most likely require ivabx when she leaves the hospital. Referral made to [facility] and [facility]. Both are able to accept. Juli from [facility] will met w/ pt. Pt will be getting a pic line at some point. CM to follow. Plan: [facility]; [facility]/ [facility] Date Signed: 12/09/2017 12:01 PM Electronically Signed By:AMILCAR Park
[2017-12-09] MEDS: oxyCODONE IR 5 MG TAB PO PRN ×2 (12:26→20:58)
--- NOTE | 2017-12-09 12:54 | HOSPPROG ---
Hospitalist Progress Note Assessment/Plan: #MSSA bacteremia from a cervical prevertebral abscess: attempting medical therapy to avoid surgery. No vegetation on MONIKA -IV Ancef. Bld cx 12/08 NGTD #Hypokalemia: replace #Acute pain: better today. Trial Robaxin for spasms. Dilaudid not effective; trial oxy. Lidocaine patch, Gabapentin BID Toradol. Bowel regimen -[facility] consulted with improved symptoms #Diet: regular Inpatient care for pain control, IV abx. with her at bedside. Questions answered Subjective: pain improved. Has some spasms Objective: Vital Signs Temp Pulse Resp BP Pulse Ox 36.4 C 80 14 142/89 H 94 12/09/17 11:01 12/09/17 11:01 12/09/17 11:01 12/09/17 11:01 12/09/17 11:01 Laboratory Results 12/08/17 04:49 12/09/17 04:49 12/08/17 12/09/17 12/10/17 05:59 05:59 05:59 Intake Total 900 500 Output Total 2150 1200 Balance -1250 -700 - Time Spent With Patient Time Spent with Patient: greater than 35 minutes Time Spent with Patient: Greater than 35 minutes spent on this patients care, greater than 50% of time spent counseling, educating, and coordinating care regarding the above mentioned plan. - Physical Exam Constitutional: no apparent distress Eyes: PERRL Ears, Nose, Mouth, Throat: moist mucous membranes Cardiovascular: regular rate and rhythym Respiratory: no respiratory distress Gastrointestinal: normoactive bowel sounds Genitourinary: no bladder fullness Skin: warm Musculoskeletal: other (no bony TTP over spine) Neurologic: AAOx3, CN II-XII Intact Psychiatric: interacting appropriately ICD10 Worksheet Patient Problems: Problems Problem Status Onset Abscess of thorax Acute Bacteremia Acute
--- NOTE | 2017-12-09 16:17 | PDIAF ---
- Diagnosis Diagnosis: MSSA Paraspinal abscess T spine & Bacteremia Code Status: Full Code - Medication Management Discharge Medications: Medications to Continue on Transfer Azithromycin 250 mg PO DAILY 12/04/17 [Last Taken 12/04/17] Cefdinir [Omnicef (*)] 300 mg PO BID 12/04/17 [Last Taken 12/04/17] Cyclobenzaprine [Flexeril 10 MG (*)] 10 mg PO Q8H PRN 12/04/17 [Last Taken Unknown] Multivitamins [Multivitamin (*)] 1 each PO DAILY 12/04/17 [Last Taken Unknown] Mri Assistant Antibiotics: Cefazolin 6 g IV continuous infusion Q 24 hours [facility] Antibiotic Stop Date: 01/19/18 Discharge Medications: Refer to the Discharge Home Medication list for PRN reason. PICC Care - Routine: Yes - Orders Services needed: Home Care, Registered Nurse Home Care Face to Face: I certify that this patient was under my care and that I had the required [id number] encounter meeting the encounter requirements on the discharge day. My findings support the fact that the patient is homebound as defined in Home Care Face to Face Continued: CMS Chapter 7 Medicare Benefits Manual 30.1.1 , The condition of the patient is such that there exists a normal inability to leave home and consequently, leaving home would require a considerable and taxing effort. - Labs/Radiology CBC w/diff Date: 12/15/17 (Weekly Friday) CMP Date: 12/15/17 (Weekly Friday) CRP Date: 12/15/17 (Weekly Friday) Call or Fax Lab and Imaging Results to: Yomaira Barragan MD [facility] at fax [phone] - Follow Up Care Current Providers and Referrals: Lian Rodrigez MD [Primary Care Provider] - As per Instructions Yomaira Barragan MD [Medical Doctor] -
--- NOTE | 2017-12-09 16:19 | PDIAF ---
- Diagnosis Diagnosis: MSSA Paraspinal abscess T spine & Bacteremia Code Status: Full Code - Medication Management Discharge Medications: Medications to Continue on Transfer Cyclobenzaprine [Flexeril 10 MG (*)] 10 mg PO Q8H PRN 12/04/17 [Last Taken Unknown] Multivitamins [Multivitamin (*)] 1 each PO DAILY 12/04/17 [Last Taken Unknown] Chain Hoist Operator Antibiotics: Cefazolin 6 g IV continuous infusion Q 24 hours [facility] Antibiotic Stop Date: 01/19/18 Discharge Medications: Refer to the Discharge Home Medication list for PRN reason. PICC Care - Routine: Yes - Orders Services needed: Home Care, Registered Nurse Home Care Face to Face: I certify that this patient was under my care and that I had the required [id number] encounter meeting the encounter requirements on the discharge day. My findings support the fact that the patient is homebound as defined in Home Care Face to Face Continued: CMS Chapter 7 Medicare Benefits Manual 30.1.1 , The condition of the patient is such that there exists a normal inability to leave home and consequently, leaving home would require a considerable and taxing effort. - Labs/Radiology CBC w/diff Date: 12/15/17 (Weekly Friday) CMP Date: 12/15/17 (Weekly Friday) CRP Date: 12/15/17 (Weekly Friday) Call or Fax Lab and Imaging Results to: Yomaira Barragan MD [facility] at fax [phone] - Follow Up Care Current Providers and Referrals: Lian Rodrigez MD [Primary Care Provider] - As per Instructions Yomaira Barragan MD [Medical Doctor] - 12/16/17 4:00 pm
[2017-12-09] MEDS: POLYETHYLENE GLYCOL 3350 17 GM PKT PO PRN (20:58)
[2017-12-09] MEDS: PATCH REMOVAL 1 EA PATCH TD SCH ×2 (21:00)
[2017-12-10] MEDS: ONDANSETRON 4 MG/2 ML VIAL IVP SCH ×4 (02:02→14:35)
[2017-12-10] MEDS: oxyCODONE IR 5 MG TAB PO PRN ×3 (02:04→14:34)
[2017-12-10] MEDS: ceFAZolin 2 GM/DEXTROSE 100 ML IV SCH (05:19)
[2017-12-10] MEDS: ACETAMINOPHEN 325 MG TAB PO SCH ×2 (05:20→11:35)
[2017-12-10] MEDS: KETOROLAC 15 MG/1 ML SDV IVP SCH ×2 (05:20→11:34)
[2017-12-10 07:51] VITALS: BP 142/91
[2017-12-10] MEDS ORDERED: ALTEPLASE 2 MG VIAL IVP PRN (08:27)
--- NOTE | 2017-12-10 08:29 | PCMIDPN ---
Assessment/Plan: #MSSA Prevertebral abscess T spine & Bacteremia. MONIKA negative, AF since admit. Oddly no bone or disc involvement at this point --place picc and dc -- repeat T spine MRI 2-3 weeks as outpatient --discussed PICC line placement risks and benefits, lifting limitation. cefazolin, Stop Date: 01/19/18 --dc today ok from ID perspective #PCN allergy : unclear if true allergy, childhood. Patient doubts it is real. Tolerating cefazolin well Microbiology 12/04/17 12:30 Blood Cx 2/2 MSSA 12/06/17 04:55 Blood Cx 2/2 MSSA 12/08/17 blood cx (2) NGTD meds cefazolin 2gm IV q8h #6 Subjective: still with chest pain, but very excited about discharge from hospital. Feels like she is ready to go Objective: Vital Signs Temp Pulse Resp BP Pulse Ox 36.9 C 85 14 142/91 H 94 12/10/17 07:51 12/10/17 07:51 12/10/17 07:51 12/10/17 07:51 12/10/17 07:51 Laboratory Results 12/08/17 04:49 12/09/17 04:49 12/09/17 12/10/17 12/11/17 05:59 05:59 05:59 Intake Total 500 750 Output Total 1200 Balance -700 750 C-Reactive Protein 403.7 mg/L (<10.0) H 12/04/17 12:05 - Physical Exam General Appearance: alert, no apparent distress Respiratory: No accessory muscle use Neck: supple Skin: No rash Neuro/Psych: alert, normal mood/affect, oriented x 3, other (normal gait) - Time Spent With Patient Time Spent with Patient: greater than 35 minutes (reviewing plan of IV antibiotics, side effects, expectations for recovery w patient and her ) Time Spent with Patient: Greater than 35 minutes spent on this patients care, greater than 50% of time spent counseling, educating, and coordinating care regarding the above mentioned plan. ICD10 Worksheet Patient Problems: Problems Problem Status Onset Abscess of thorax Acute Bacteremia Acute
[2017-12-10] MEDS: GABAPENTIN 300 MG CAP PO SCH (09:12)
[2017-12-10] MEDS: LIDOCAINE 4%/MENTHOL 1% PATCH TD SCH ×2 (09:12→09:13)
[2017-12-10] MEDS: SENNOSIDES/DOCUSATE SODIUM TAB PO SCH (09:49)
--- NOTE | 2017-12-10 13:51 | ASMTLACE ---
JORGEE Length of stay for Answers: 4-6 days current admission Acuity / Level of Answers: Yes Care: Did the patient have an inpatient admission? # of Emergency department Answers: 1-2 visits in the last 6 months Score: 8 Date Signed: 12/10/2017 01:50 PM Electronically Signed By:Ct Hardin RN
--- NOTE | 2017-12-10 15:12 | GDS ---
DISCHARGE DIAGNOSES: 1. MRSA, paraspinal abscess and bacteremia. 2. Acute back pain. 3. Nausea. 4. Hypokalemia. CONSULTATIONS: Infectious Disease. HISTORY OF PRESENT ILLNESS: A 57-year-old female with no significant past medical history presented to [facility] with 5 days of back pain and fevers. She was seen at urgent care the day prior and diagnosed with pneumonia. She was given Rocephin and discharged on oral antibiotics. Her blood cultures resulted with MSSA and was prompted to come to [facility]. She had left-sided back pain that was sharp and radiating. It was worse with deep breaths. No chest pain, abdominal pain, nausea, vomiting, or diarrhea. HOSPITAL COURSE BY PROBLEM: 1. MSSA paraspinal abscess/bacteremia: No vegetations on echocardiogram. Infectious Disease was consulted. Blood cultures cleared 12/08/2017. She will be discharged on continuous IV Ancef through 01/19/2018. She will follow up with Dr. Barragan 12/16/2017, with weekly labs. 2. Acute back pain: Secondary to #1. Pain improved on oxycodone. Can alternate between Tylenol and Advil. Also gabapentin. 3. Hypokalemia: Due to decreased p.o. intake. This was replaced. DISPOSITION: Patient is stable for discharge home with her and home health. NEW MEDICATIONS: 1. Ancef. 2. Oxycodone. 3. Gabapentin. FOLLOWUP: 1. Dr. Barragan. 2. Primary care physician. PHYSICAL EXAMINATION: VITAL SIGNS: Today, temperature 36.9, blood pressure 142 /91, heart rate in the 80s, respirations 14, 94% on room air. GENERAL: She is more bright today. No acute distress, sitting in chair. HEENT: PERRLA. Moist mucous membranes. CV: Regular rate and rhythm. LUNGS: Clear. ABDOMEN : Soft, nontender, nondistended. Positive bowel sounds. No bony tenderness over back. : No Perez. MUSCULOSKELETAL: 5/5, upper and lower extremity strength. NEURO: 2 through 12 intact. PSYCH: Alert and oriented x3. Time spent on discharge: Greater than 30 minutes at bedside with patient and her , counseling on pain control, followup plan. Discussed the case with Dr. Barragan. /[id number]/MODL MTDD
--- NOTE | 2017-12-11 17:19 | ASDISCHSUM ---
Discharge Information Plan Status:IV ABX/Infusion Medically Cleared to Leave: Discharge Date:12/10/2017 03:45 PM D/C Disposition:Home Health Service ADT D/C Disposition:[id number] Projected Discharge Date:12/10/2017 11:00 AM Transportation at D/C:Family Discharge Delay Reason: Follow-Up Date:12/10/2017 11:00 AM Discharge Slot: Final Diagnosis: Placement Information Referral Type:Home Infusion Referral ID:[id number] Provider Name:[facility] Address 1:[address] Address 2: City:[place] Selection Factors: State:[place] Patient Contact Information Contact Name:JUAN RAMON Relationship: Address:[address] [place] [address] City:[place] Alternate Phone: State/Zip Code:[place] [address] Email: Financial Information Financial Class:[facility] Primary Plan Desc:[facility] [place] Primary Plan Number:[id number] Secondary Plan Desc:[employer]OPEZ PPO Secondary Plan Number:[id number] Assessment Information LACE LACE Length of stay for Answers: 4-6 days current admission Acuity / Level of Answers: Yes Care: Did the patient have an inpatient admission? # of Emergency department Answers: 1-2 visits in the last 6 months Score: 8 Date Signed: 12/10/2017 01:50 PM Electronically Signed By:Ct Hardin RN [facility] CM Progress Note CM Note CM Note Notes: Pt is a 57 y/o female admitted for fevers and back pain. Pt presented to [facility] 5 days ago for the same presentation. Pt went to urgent care yesterday and left w/ oral rocephin. Blood cultures report that pt is positive for MSSA. ID is being consulted. Needs are TBD at this time. CM to follow. Plan: TBD Date Signed: 12/05/2017 11:32 AM Electronically Signed By:AMILCAR Park [facility] CM Progress Note CM Note CM Note Notes: CM spoke to Dr. Barragan and Dr. Key regarding d/c POC. Pt will most likely require ivabx when she leaves the hospital. Referral made to [facility] and [facility]. Both are able to accept. Juli from [facility] will met w/ pt. Pt will be getting a pic line at some point. CM to follow. Plan: [facility]; [facility] Date Signed: 12/09/2017 12:01 PM Electronically Signed By:AMILCAR Park Case Management Discharge Plan Note Case Management Discharge Discharge Order Complete? Answers: Yes Patient to Obtain Answers: Other Notes: [facility] Medications Transportation Arranged Answers: Family/Friends Faxed Final Orders Answers: Yes Family Notified Answers: Yes Discharge Comments Notes: D/w , final orders faxed. Juli at [facility] and Samantha at [facility] notified. CM informed pt and that [facility] will be coming to hospital to connect IV abx before she goes home, home health RN will go out in the am. Intervention Information
== END 2017-12-10 15:45 | disposition home health service (06) | DRG 95 ==
LOC: F3E 17:07
PROVIDERS: ADMIT Hospitalist; ATTEND Hospitalist
PROC: 02H633Z Insertion of Infusion Device into Right Atrium, Percutaneous Approach (ICD-10-PCS; principal; 2017-12-10)
DX: G06.1 Intraspinal abscess and granuloma (principal); R78.81 Bacteremia; B95.62 Methicillin resistant Staphylococcus aureus infection as the cause of diseases classified elsewhere; E87.6 Hypokalemia
CPT/HCPCS: 96365; 97165-GO; A9585; C1751; J0690; J1170; J1885; J2405; J2550; J2704; Q9967

== ENCOUNTER → 2018-02-13 | Outpatient (CLI) | payer OTHER | LOC: FIMAGING 10:40 | PROVIDERS: ATTEND Physician Assistant | DX: Z98.1 Arthrodesis status (principal); M40.204 Unspecified kyphosis, thoracic region ==

== ENCOUNTER → 2018-03-17 | Outpatient (CLI) | payer OTHER ==
[~2018-03-17] MED LIST: GADOBUTROL 10 ML VIAL IVP ONE
== END ==
LOC: FIMAGING 16:35
PROVIDERS: ATTEND Internal Medicine Infectious Disease
DX: Z09 Encounter for follow-up examination after completed treatment for conditions other than malignant neoplasm (principal); G06.2 Extradural and subdural abscess, unspecified; M51.36 Other intervertebral disc degeneration, lumbar region; M48.02 Spinal stenosis, cervical region; M46.20 Osteomyelitis of vertebra, site unspecified
CPT/HCPCS: A9585

== ENCOUNTER → 2018-05-12 | Outpatient (CLI) | payer OTHER | LOC: FIMAGING 14:53 | PROVIDERS: ATTEND Physician Assistant | DX: G06.1 Intraspinal abscess and granuloma (principal); Z98.1 Arthrodesis status ==

== ENCOUNTER → 2018-08-04 | Outpatient (CLI) | payer OTHER | LOC: FIMAGING 12:43 ==